=== PATIENT | female | born 1965 | race Caucasian/White ===

== ENCOUNTER 2020-05-15 09:49 | Day surgery (SDC) | payer BC ==
[~2020-05-15 09:49] MED LIST: ATROPINE SULFATE 1MG ONE; DIPRIVAN 200 MG/20 ML IV ONE; Ketamine HCl 50 MG/ML ONE; ROBINUL ONE
--- NOTE | 2020-05-15 09:57 | HP ---
DATE OF SURGERY: 05/15/2020 HISTORY OF PRESENT ILLNESS: The patient is a 54 year old with some pressure, pain, itching and swelling. No significant bleeding. No prior colonoscopy. Bowel movements are thinner now. Family history negative for colon cancer. PAST MEDICAL HISTORY: Anxiety. PAST SURGICAL HISTORY: She had a bilateral tubal ligation (BTL) in the past. MEDICATIONS: Preparation H with lidocaine, gabapentin, meloxicam. ALLERGIES: NKDA. FAMILY HISTORY: Negative for colon cancer. SOCIAL HISTORY: Denies alcohol abuse. REVIEW OF SYSTEMS: Fourteen systems reviewed per admission assessment. No chest pain or palpitations. Other systems negative or noncontributory as above and per preadmission questionnaire. PHYSICAL EXAMINATION: GENERAL: No acute distress. HEENT: Sclerae nonicteric. NECK: No JVD. CHEST: Equal excursion, nonlabored breathing. CVS: Regular rate and rhythm. ABDOMEN: Soft. EXTREMITIES: No significant edema. NEURO: Alert, oriented, moving extremities symmetrically. No gross motor deficits noted. PSYCH: Appropriate mood and affect. RECTAL: She had some external tags. She had superficial anal fissure, some internal and external hemorrhoids. IMPRESSION: Need for screening colonoscopy. She also had some perirectal complaints and considering exam under sedation with possible internal hemorrhoid banding if indicated at the time. She was explained the risks and benefits of the procedure in detail including but not limited to regarding endoscopy bleeding or infection, risk of bowel injury or perforation possibly requiring open procedure, risk of missed or nondiagnosis or incomplete exam possibly requiring barium enema, other studies or procedures, general risk of anesthesia or sedation, risk of bowel prep but not limited to. Regarding possible internal hemorrhoid banding if it looks like her fissure is improving or if she has any significant internal hemorrhoids that may be causing of her problems, consider possibility of banding with general risk of bleeding or infection, risk of bowel injury or perforation or perirectal infection possibly requiring operative procedure or other treatments. She understands that if she does have significant hemorrhoid disease that warrants banding at the time there is possibility of progression of hemorrhoid disease down the road that may require other treatments and/or therapies. She also understand the possibility that her hemorrhoids may not be significant enough to warrant banding at this time. She understands as well as if she continues to have fissure problems down the road she may need to consider operative intervention regarding fissure treatments. At this time she is not interested in that but is for colonoscopy possible internal hemorrhoid banding if indicated at the time of surgery, will proceed as an outpatient.
[2020-05-15] MEDS ORDERED: Lactated Ringers 1,000 ML IV SCH (10:30)
[2020-05-15 10:58] LABS: Hematocrit 40.7 % (35-47); Hemoglobin 12.9 gm/dl (12.0-16.0); Mean Cell Volume 92.3 fl (78-100); Mean Corpuscular Hemoglobin 29.3 pg (26-32); Mean Corpuscular Hgb Concent. 31.7 g/dl (32-36); Platelet Count 256 K/mm3 (150-450); Red Blood Count 4.41 M/mm3 (4.1-5.4); Red Cell Distribution Width 13.6 % (11.5-14.0); White Blood Count 7.8 K/mm3 (4.0-10.5)
[2020-05-15 11:32] LABS: ALBUMIN 4.1 g/dL (3.5-5.0); ALKALINE PHOSPHATASE 98 U/L (38-126); ANION GAP 12.5 MEQ/L (5-15); BLOOD UREA NITROGEN 11 mg/dL (7-17); CHLORIDE 106 mmol/L (98-107); Calcium 8.9 mg/dL (8.4-10.2); Carbon Dioxide 26 mmol/L (22-30); Glucose 94 mg/dL (74-106); Potassium 3.7 mmol/L (3.5-5.1); SGOT/AST 26 U/L (14-36); SGPT/ALT 25 U/L (0-35); SODIUM 141 mmol/L (137-145); Total Protein 7.3 g/dL (6.3-8.2)
[2020-05-15 13:39] VITALS: BP 136/83; PULSE 76; O2SAT 98
--- NOTE | 2020-05-15 14:11 | OP ---
SURGERY DATE/TIME: 05/15/2020 1207 PREOPERATIVE DIAGNOSES: 1) Need for screening colonoscopy. 2) History of some rectal pain and question internal and external hemorrhoids. POSTOPERATIVE DIAGNOSES: 1) Small early polyp versus hyperplastic lesion sigmoid colon. 2) Mild diverticulosis. 3) Grade II to III internal and external hemorrhoids. 4) Anterior anal fissure. 5) Fair bowel prep. 6) ASA Class II. 7) Withdrawal time 8 minutes. PROCEDURES: 1) Colonoscopy to terminal ileum. 2) Retrograde ileoscopy. 3) Hot biopsy removal of small early sigmoid colon polyp or hyperplastic lesion. 4) Internal hemorrhoid banding x2 columns. SURGEON: Dr. Daron Rudolph. ANESTHESIA: MAC. ESTIMATED BLOOD LOSS: Minimal. INDICATIONS: As noted above. Risks and benefits explained in detail but not limited to and consent obtained. DESCRIPTION OF PROCEDURE AND FINDINGS: The patient is taken to the operating room. MAC anesthesia introduced. After official time out and no disagreement with planned procedure, digital rectal exam revealed internal and external hemorrhoids. No large palpable masses. Video colonoscope inserted and passed up the tortuous sigmoid, descending, transverse and ascending colon around to the cecum up to the terminal ileum. Retrograde ileoscopy was performed which was grossly unremarkable. Appendiceal orifice and valve were well visualized and photo documented as well as the ileum. The scope is slowly and carefully withdrawn over the next 8 minutes. There were no signs of any large polyps, masses or obstructing lesions. She had some mild diverticulosis in the left colon. She had small early polyp about 2 mm in size early polyp versus hyperplastic lesion that was removed with hot biopsy forceps from the sigmoid colon. Good hemostasis noted. Otherwise she had a grade II to III internal and external hemorrhoids. The scope was then withdrawn. Remaining under MAC sedation, a half-loyola retractor is carefully inserted under better visible OR light. She did have some prominent left lateral right anterior hemorrhoid component. It was this warranted banding given her symptoms. She had a small fissure anteriorly rather than posteriorly. Her right posterior hemorrhoid complex was not prominent to warrant any banding. The half-loyola retractor carefully had been inserted. Again, anterior anal fissure had been visualized, left lateral hemorrhoidal complex band, suction hemorrhoid automatic brine mixer operator. Good tuft of tissue noted. This is repositioned and again the right posterior was not large enough to warrant any banding. Half-loyola retractor carefully reinserted. The right anterior hemorrhoid complex was much more prominent. It was felt it warranted trial banding. Suction automatic brine mixer operator carefully applied. There was a little bit of ooze on placing the retractor. Again, she did have this small anterior anal fissure felt to be causing some of her symptoms. She tolerated the procedure well. There were no immediate complications. There was no family here to discuss the findings with at this point. She was transferred to the recovery room in satisfactory condition. I will see her back in the office next week. Continue high fiber diet to titrate soft, bulky bowel movements. She will use some Diltiazem cream for the fissure for a trial. If she fails to improve may need to consider limited lateral internal sphinterotomy. She will have some rectal bleeding from doing the procedure itself and usually clears over time. I will see her back in the office next week to go over results.
== END 2020-05-15 13:50 | disposition home or self-care (01) ==
LOC: SDC 09:49
PROVIDERS: ATTEND Surgery
DX: Z12.11 Encounter for screening for malignant neoplasm of colon (principal); K57.30 Diverticulosis of large intestine without perforation or abscess without bleeding; K64.4 Residual hemorrhoidal skin tags; K63.5 Polyp of colon; K64.8 Other hemorrhoids; K60.2 Anal fissure, unspecified
CPT/HCPCS: 36415; 45398; 80053; 85027; 88305; 93005; J0461; J2704

== ENCOUNTER 2020-10-18 11:44 | Day surgery (SDC) | payer BC ==
[2020-10-18] MEDS ORDERED: Xylocaine 1% Vial 30 ML PF IJ ONE (11:45)
[2020-10-18] MEDS ORDERED: BUPIVACAINE 0.5% VIAL IJ ONE (11:45)
[2020-10-18] MEDS ORDERED: Depo-Medrol 40 MG/ML IM ONE (11:45)
[2020-10-18] MEDS ORDERED: DIPRIVAN 200 MG/20 ML IV ONE (14:27)
[2020-10-18] MEDS ORDERED: Ketamine HCl 50 MG/ML ONE (14:27)
--- NOTE | 2020-10-18 15:22 | XRAY ---
Indication: Right hip injection. Intraoperative fluoroscopy was provided for 19 seconds. Single digital spot image submitted for interpretation demonstrates needle tip projecting lateral to the right femur neck. Small amount of contrast injected for needle tip placement. Correlate with intraoperative findings/report.
--- NOTE | 2020-10-18 15:22 | XRAY ---
Indication: Left hip injection. Intraoperative fluoroscopy was provided for 13 seconds. Single digital spot image submitted for interpretation demonstrates needle tip projecting lateral to the left femur neck. Small amount of contrast injected for needle tip placement. Correlate with intraoperative findings/report.
[2020-10-18] MEDS ORDERED: Lactated Ringers 1,000 ML IV ONE (16:08)
--- NOTE | 2020-10-18 16:18 | XRAY ---
13 seconds fluoroscopy time in surgery for left hip injection.
--- NOTE | 2020-10-18 16:18 | XRAY ---
19 seconds fluoroscopy time in surgery for right hip injection.
== END 2020-10-18 14:58 | disposition home or self-care (01) ==
LOC: SDC-PAIN 11:44
PROVIDERS: ATTEND Psychiatry & Neurology Pain Medicine
DX: M16.0 Bilateral primary osteoarthritis of hip (principal); G62.9 Polyneuropathy, unspecified; D64.9 Anemia, unspecified; F41.8 Other specified anxiety disorders; Z79.899 Other long term (current) drug therapy
CPT/HCPCS: 20610; 73501; 77002; 84703; J1030; J2001; J2704; Q9966

== ENCOUNTER 2024-11-25 12:04 | Day surgery (SDC) | payer BC ==
[2024-11-25] MEDS ORDERED: BUPIVACAINE 0.5% VIAL IJ ONE (12:05)
[2024-11-25] MEDS ORDERED: methylPREDNISolone acetate IM ONE (12:05)
[2024-11-25] MEDS ORDERED: propofoL IV ONE ×2 (14:37→14:48)
--- NOTE | 2024-11-25 17:33 | XRAY ---
Indication: Bilateral hip and greater trochanter bursa injection. Intraoperative fluoroscopy provided for 55 second. 8 digital spot image obtained prone submitted for interpretation demonstrates needle tips projecting lateral to left/right femur and axial and lateral to left/right greater trochanters. Small amount of contrast injected for all needle tip placement. Correlate with intraoperative findings/report.
--- NOTE | 2024-11-25 17:34 | XRAY ---
55 seconds of fluoroscopy was used in surgery for a bilateral intra-articular hip and greater trochanteric bursa injection.
== END 2024-11-25 15:11 | disposition home or self-care (01) ==
LOC: SDC-PAIN 12:04
PROVIDERS: ATTEND Psychiatry & Neurology Pain Medicine
DX: M16.0 Bilateral primary osteoarthritis of hip (principal); M70.72 Other bursitis of hip, left hip; M70.71 Other bursitis of hip, right hip
CPT/HCPCS: 20610; 73522; 77002; J1010; J2704; Q9966

== ENCOUNTER 2025-06-15 12:07 | Day surgery (SDC) | payer BC ==
[2025-06-15] MEDS ORDERED: Depo-Medrol 40 MG/ML IM ONE (12:08)
[2025-06-15] MEDS ORDERED: Sodium Chloride 0.9(Preservative Free) 10 ML IJ ONE (12:08)
[2025-06-15] MEDS ORDERED: LIDOCAINE HCL 1% 50 MG/5 ML VL IJ ONE (12:08)
[2025-06-15] MEDS ORDERED: propofoL IV ONE (14:05)
[2025-06-15] MEDS ORDERED: Xylocaine-Mpf 2% 5 Ml Vial ONE (14:08)
[2025-06-15] MEDS ORDERED: Lactated Ringers 1,000 ML IV ONE (14:45)
--- NOTE | 2025-06-15 16:56 | XRAY ---
Indication: Lumbar DORIS. Intraoperative fluoroscopy provided for 17 seconds. 4 digital spot image submitted for interpretation demonstrates posterior needle tip projecting posterior to L2. Small amount of contrast injected for needle tip placement. Correlate with intraoperative findings/report.
--- NOTE | 2025-06-16 09:53 | XRAY ---
17 seconds of fluoroscopy was used in surgery for a lumbar DORIS.
== END 2025-06-15 14:40 | disposition home or self-care (01) ==
LOC: SDC-PAIN 12:07
PROVIDERS: ATTEND Psychiatry & Neurology Pain Medicine
DX: M54.16 Radiculopathy, lumbar region (principal)